=== PATIENT | female | born 1970 | race Two or more races ===

== ENCOUNTER 2020-07-09 20:47 | Inpatient (IN) | payer MEDICAID ==
[~2020-07-09] VITALS: Ht 160 cm; Wt 59.6 kg
[2020-07-10 00:08] LABS: HEMATOCRIT. 40.4 % (36.0-48.0); HEMOGLOBIN. 13.4 g/dL (12.0-16.0); MEAN CORPUSCULAR HEMOGLOBIN 28.6 pg (28.0-32.0); MEAN CORPUSCULAR VOLUME 86.1 fL (81.0-99.0); MEAN PLATELET VOLUME 7.7 fl (7.4-10.4); PLATELET 261 x1000/uL (130-400); RED BLOOD CELL COUNT 4.69 mill/uL (4.2-5.4); RED CELL DISTRIBUTION WIDTH 17.4 % (11.6-14.6)
[2020-07-10 00:20] LABS: CHLORIDE 100 mEq/L (98-107)
[2020-07-10] MEDS ORDERED: CEFEPIME 1,000 MG in DEXTROSE 5% WATER 50 ML IV ONE (01:00)
[2020-07-10] MEDS ORDERED: VANCOMYCIN 1 G PREMIX 200 ML IV SCH (01:00)
[2020-07-10 04:41] LABS: PLATELET ESTIMATE NORMAL
[2020-07-10 08:00] VITALS: BP 104/56
[2020-07-10] MEDS ORDERED: ONDANSETRON HCL 4MG/2ML INJ IV PRN (08:45)
[2020-07-10] MEDS ORDERED: DIPHENHYDRAMINE 50MG/ML VIAL IV PRN (08:45)
[2020-07-10] MEDS ORDERED: ALBUTEROL 6.7GM HFA INHALER ORI PRN (08:45)
[2020-07-10] MEDS ORDERED: CEFTRIAXONE 1 G PREMIX 50 ML IV SCH (08:45)
[2020-07-10] MEDS ORDERED: ACETAMINOPHEN 325MG TABLET PO PRN (08:45)
[2020-07-10] MEDS ORDERED: CLONIDINE 0.1MG TABLET PO PRN (08:45)
[2020-07-10] MEDS ORDERED: DEXTROSE 50% WATER 50ML SYRINGE IV PRN (10:00)
[2020-07-10] MEDS: ENOXAPARIN 40MG/0.4ML SYR SUBCUT SCH (10:01)
[2020-07-10] MEDS: AZITHROMYCIN 500 MG in DEXT 5% WATER 250 ML IV SCH (10:02)
[2020-07-10] MEDS: CEFTRIAXONE 1,000 MG in DEXTROSE 5% WATER 50 ML IV SCH (10:02)
[2020-07-10] MEDS ORDERED: FOLI-43 MT (11:32)
[2020-07-10] MEDS ORDERED: METH2.5T MT (11:32)
[2020-07-10] MEDS ORDERED: PRED10TA23 MT (11:32)
[2020-07-10 12:00] VITALS: BP 137/72
[2020-07-10] MEDS: BLOOD SUGAR DIAGNOSTIC STRIP TEST SCH ×3 (12:40→20:38)
[2020-07-10] MEDS: INSULIN LISPRO 100 UNITS/ML SUBCUT SCH ×3 (13:15→20:47)
[2020-07-10 14:55] VITALS: BP 119/87
[2020-07-10 16:00] VITALS: BP 115/81
[2020-07-10 16:44] LABS: C REACTIVE PROTEIN CARDIAC 0.57 mg/L (0.00-3.00)
[2020-07-10 20:00] VITALS: BP 109/68
[2020-07-11 00:45] VITALS: BP 115/77
[2020-07-11] MEDS: DICLOFENAC SODIUM 75MG DR (EC) TABLET PO SCH ×3 (02:10→20:54)
[2020-07-11] MEDS: PREDNISONE 5MG TABLET PO SCH ×3 (02:10→16:10)
[2020-07-11] MEDS: HYDROXYCHLOROQUINE SULFATE 200MG TABLET PO SCH ×3 (02:12→16:10)
[2020-07-11 04:00] VITALS: BP 101/71
[2020-07-11 05:54] LABS: HEMATOCRIT. 34.5 % (36.0-48.0); HEMOGLOBIN. 11.5 g/dL (12.0-16.0); MEAN CORPUSCULAR HEMOGLOBIN 28.4 pg (28.0-32.0); MEAN CORPUSCULAR VOLUME 85.1 fL (81.0-99.0); MEAN PLATELET VOLUME 7.8 fl (7.4-10.4); PLATELET 232 x1000/uL (130-400); RED BLOOD CELL COUNT 4.05 mill/uL (4.2-5.4); RED CELL DISTRIBUTION WIDTH 17.7 % (11.6-14.6)
[2020-07-11] MEDS ORDERED: TUBERCULIN,PURIF.PROT.DERIV. 5 TU/0.1 ML SYR ID ONE (07:00)
[2020-07-11] MEDS: BLOOD SUGAR DIAGNOSTIC STRIP TEST SCH ×3 (07:44→20:54)
[2020-07-11 07:51] VITALS: BP 108/67
[2020-07-11] MEDS: INSULIN LISPRO 100 UNITS/ML SUBCUT SCH ×3 (08:02→21:39)
[2020-07-11 08:03] LABS: CHLORIDE 103 mEq/L (98-107)
[2020-07-11] MEDS: CHOLECALCIFEROL (D3) 1000 UNIT TABLET PO SCH (08:04)
[2020-07-11] MEDS: ENOXAPARIN 40MG/0.4ML SYR SUBCUT SCH (08:04)
[2020-07-11] MEDS: FOLIC ACID 1MG TABLET PO SCH (08:05)
[2020-07-11 08:12] LABS: LDL CHOLESTEROL 150 mg/dL (5-100)
[2020-07-11 08:13] LABS: CREATINE KINASE 19 IU/L (26-192); HDL CHOLESTEROL 47 mg/dL (40-59)
[2020-07-11] MEDS: CEFTRIAXONE 1,000 MG in DEXTROSE 5% WATER 50 ML IV SCH (11:23)
[2020-07-11 12:00] VITALS: BP 100/63
[2020-07-11] MEDS: AZITHROMYCIN 500 MG in DEXT 5% WATER 250 ML IV SCH (12:03)
[2020-07-11 14:29] LABS: PLATELET ESTIMATE NORMAL
[2020-07-11 16:25] VITALS: BP 109/75
[2020-07-11 19:26] LABS: CLARITY URINE CLEAR (CLEAR); COLOR URINE YELLOW (YELLOW); KETONES URINE NEGATIVE (NEGATIVE); LEUKOCYTE ESTERASE URINE NEGATIVE (NEGATIVE); NITRITE URINE NEGATIVE (NEGATIVE); OCCULT BLOOD URINE NEGATIVE (NEGATIVE); PH URINE 6.5 (4.5-8.0); PROTEIN URINE NEGATIVE (NEGATIVE); SPECIFIC GRAVITY URINE 1.008 (1.005-1.030); UROBILINOGEN URINE 0.2 E.U./dL (0.2-1.0)
[2020-07-11 19:52] LABS: *BARBITURATES SCREEN URINE NEGATIVE (NEGATIVE); *BENZODIAZEPINES SCREEN URINE NEGATIVE (NEGATIVE); *COCAINE SCREEN URINE NEGATIVE (NEGATIVE)
[2020-07-11 19:54] LABS: *AMPHETAMINES SCREEN URINE NEGATIVE (NEGATIVE); CANNABINOID URINE SCREEN NEGATIVE (NEGATIVE); METHADONE URINE SCREEN NEGATIVE (NEGATIVE); OPIATES URINE SCREEN NEGATIVE (NEGATIVE); PHENCYCLIDINE URINE SCREEN NEGATIVE (NEGATIVE)
[2020-07-11 20:00] VITALS: BP 107/58
[2020-07-11 20:26] LABS: HCG SCREEN NEGATIVE
[2020-07-11] MEDS ORDERED: LOPERAMIDE HCL 2MG CAPSULE PO PRN (23:30)
[2020-07-12 00:31] VITALS: BP 120/89
[2020-07-12 04:00] VITALS: BP 118/75
[2020-07-12] MEDS: BLOOD SUGAR DIAGNOSTIC STRIP TEST SCH ×4 (06:23→20:55)
[2020-07-12 08:00] VITALS: BP 117/79
[2020-07-12] MEDS: DICLOFENAC SODIUM 75MG DR (EC) TABLET PO SCH ×2 (09:46→20:55)
[2020-07-12] MEDS: AZITHROMYCIN 500 MG TABLET PO SCH (09:46)
[2020-07-12] MEDS: PREDNISONE 5MG TABLET PO SCH ×2 (09:46→17:32)
[2020-07-12] MEDS: HYDROXYCHLOROQUINE SULFATE 200MG TABLET PO SCH ×2 (09:48→17:32)
[2020-07-12] MEDS: FOLIC ACID 1MG TABLET PO SCH (09:48)
[2020-07-12] MEDS: CHOLECALCIFEROL (D3) 1000 UNIT TABLET PO SCH (09:48)
[2020-07-12] MEDS: INSULIN LISPRO 100 UNITS/ML SUBCUT SCH ×4 (10:27→21:54)
[2020-07-12] MEDS: ENOXAPARIN 40MG/0.4ML SYR SUBCUT SCH (10:30)
[2020-07-12] MEDS: CEFTRIAXONE 1,000 MG in DEXTROSE 5% WATER 50 ML IV SCH (10:33)
[2020-07-12 12:00] VITALS: BP 104/62
[2020-07-12 16:00] VITALS: BP 110/66
[2020-07-12 20:34] VITALS: BP 121/89
[2020-07-12] MEDS: ACETYLCYSTEINE 100MG/ML 10% VIAL 4ML INH SCH (23:29)
[2020-07-12] MEDS: IPRATROPIUM/ALBUTEROL 0.5-3(2.5)MG/3ML NEB HHN PRN (23:29)
[2020-07-13] VITALS: BP 105/69
[2020-07-13 04:00] VITALS: BP 119/67
[2020-07-13] MEDS: BLOOD SUGAR DIAGNOSTIC STRIP TEST SCH ×4 (06:16→20:45)
[2020-07-13 08:00] VITALS: BP 138/82
[2020-07-13] MEDS: ENOXAPARIN 40MG/0.4ML SYR SUBCUT SCH (08:29)
[2020-07-13] MEDS: ACETYLCYSTEINE 100MG/ML 10% VIAL 4ML INH SCH ×3 (08:29→21:50)
[2020-07-13] MEDS: IPRATROPIUM/ALBUTEROL 0.5-3(2.5)MG/3ML NEB HHN PRN ×3 (08:30→21:50)
[2020-07-13] MEDS: INSULIN LISPRO 100 UNITS/ML SUBCUT SCH ×4 (08:32→20:59)
[2020-07-13] MEDS: DICLOFENAC SODIUM 75MG DR (EC) TABLET PO SCH ×2 (08:33→20:45)
[2020-07-13] MEDS: PREDNISONE 5MG TABLET PO SCH ×2 (08:33→16:59)
[2020-07-13] MEDS: AZITHROMYCIN 500 MG TABLET PO SCH (08:33)
[2020-07-13] MEDS: HYDROXYCHLOROQUINE SULFATE 200MG TABLET PO SCH ×2 (08:33→16:59)
[2020-07-13] MEDS: FOLIC ACID 1MG TABLET PO SCH (08:33)
[2020-07-13] MEDS: CHOLECALCIFEROL (D3) 1000 UNIT TABLET PO SCH (08:33)
[2020-07-13] MEDS: CEFTRIAXONE 1,000 MG in DEXTROSE 5% WATER 50 ML IV SCH (09:27)
[2020-07-13 12:00] VITALS: BP 135/81
[2020-07-13 16:00] VITALS: BP 105/67
[2020-07-13 20:45] VITALS: BP 130/78
[2020-07-14 00:23] VITALS: BP 106/57
[2020-07-14 04:00] VITALS: BP 125/71
[2020-07-14] MEDS: BLOOD SUGAR DIAGNOSTIC STRIP TEST SCH ×4 (06:39→21:53)
[2020-07-14 07:08] LABS: HEMATOCRIT. 34.1 % (36.0-48.0); HEMOGLOBIN. 11.3 g/dL (12.0-16.0); MEAN CORPUSCULAR HEMOGLOBIN 28.8 pg (28.0-32.0); MEAN CORPUSCULAR VOLUME 86.7 fL (81.0-99.0); MEAN PLATELET VOLUME 7.9 fl (7.4-10.4); PLATELET 241 x1000/uL (130-400); RED BLOOD CELL COUNT 3.93 mill/uL (4.2-5.4); RED CELL DISTRIBUTION WIDTH 18.3 % (11.6-14.6)
[2020-07-14 07:22] LABS: CHLORIDE 105 mEq/L (98-107)
[2020-07-14] MEDS: INSULIN LISPRO 100 UNITS/ML SUBCUT SCH ×4 (07:42→21:54)
[2020-07-14 08:04] VITALS: BP 120/66
[2020-07-14] MEDS: AZITHROMYCIN 500 MG TABLET PO SCH (08:32)
[2020-07-14] MEDS: DICLOFENAC SODIUM 75MG DR (EC) TABLET PO SCH ×2 (08:32→21:53)
[2020-07-14] MEDS: ENOXAPARIN 40MG/0.4ML SYR SUBCUT SCH (08:32)
[2020-07-14] MEDS: CHOLECALCIFEROL (D3) 1000 UNIT TABLET PO SCH (08:32)
[2020-07-14] MEDS: FOLIC ACID 1MG TABLET PO SCH (08:32)
[2020-07-14] MEDS: PREDNISONE 5MG TABLET PO SCH ×2 (08:32→16:52)
[2020-07-14] MEDS: HYDROXYCHLOROQUINE SULFATE 200MG TABLET PO SCH ×2 (08:33→16:52)
[2020-07-14 09:09] LABS: ALDOLASE 8.7 U/L (3.3-10.3)
[2020-07-14] MEDS: CEFTRIAXONE 1,000 MG in DEXTROSE 5% WATER 50 ML IV SCH (09:49)
[2020-07-14] MEDS: IPRATROPIUM/ALBUTEROL 0.5-3(2.5)MG/3ML NEB HHN PRN ×2 (10:11→21:44)
[2020-07-14] MEDS: ACETYLCYSTEINE 100MG/ML 10% VIAL 4ML INH SCH ×2 (10:11→21:43)
[2020-07-14 12:00] VITALS: BP 101/66
[2020-07-14 13:53] LABS: PLATELET ESTIMATE NORMAL
[2020-07-14 16:00] VITALS: BP 95/65
[2020-07-14] MEDS ORDERED: LOPERAMIDE HCL 2MG CAPSULE PO NR (18:00)
[2020-07-14 20:11] VITALS: BP 121/80
[2020-07-15 00:44] VITALS: BP 127/83
[2020-07-15 04:00] VITALS: BP 105/63
[2020-07-15] MEDS: BLOOD SUGAR DIAGNOSTIC STRIP TEST SCH ×4 (06:38→20:21)
[2020-07-15] MEDS: INSULIN LISPRO 100 UNITS/ML SUBCUT SCH ×4 (07:25→20:35)
[2020-07-15 08:00] VITALS: BP 117/70
[2020-07-15] MEDS: DICLOFENAC SODIUM 75MG DR (EC) TABLET PO SCH ×2 (08:47→20:36)
[2020-07-15] MEDS: HYDROXYCHLOROQUINE SULFATE 200MG TABLET PO SCH ×2 (08:48→17:45)
[2020-07-15] MEDS: ENOXAPARIN 40MG/0.4ML SYR SUBCUT SCH (08:48)
[2020-07-15] MEDS: METHOTREXATE SODIUM 2 . 5MG TABLET PO SCH ×3 (08:48→17:45)
[2020-07-15] MEDS: FOLIC ACID 1MG TABLET PO SCH (08:48)
[2020-07-15] MEDS: PREDNISONE 5MG TABLET PO SCH ×2 (08:48→17:45)
[2020-07-15] MEDS: CHOLECALCIFEROL (D3) 1000 UNIT TABLET PO SCH (08:48)
[2020-07-15] MEDS: IPRATROPIUM/ALBUTEROL 0.5-3(2.5)MG/3ML NEB HHN PRN ×2 (09:41→14:55)
[2020-07-15] MEDS: ACETYLCYSTEINE 100MG/ML 10% VIAL 4ML INH SCH ×2 (09:41→14:56)
[2020-07-15 12:00] VITALS: BP 98/68
[2020-07-15 16:00] VITALS: BP 110/73
[2020-07-15 20:00] VITALS: BP 104/64
[2020-07-16 00:14] VITALS: BP 114/73
[2020-07-16] MEDS: ACETYLCYSTEINE 100MG/ML 10% VIAL 4ML INH SCH ×2 (00:21→09:40)
[2020-07-16] MEDS: IPRATROPIUM/ALBUTEROL 0.5-3(2.5)MG/3ML NEB HHN PRN ×2 (00:22→09:40)
[2020-07-16 04:00] VITALS: BP 98/59
[2020-07-16] MEDS: BLOOD SUGAR DIAGNOSTIC STRIP TEST SCH ×2 (06:20→12:20)
[2020-07-16] MEDS: INSULIN LISPRO 100 UNITS/ML SUBCUT SCH ×2 (07:02→12:50)
[2020-07-16] MEDS: FOLIC ACID 1MG TABLET PO SCH (08:07)
[2020-07-16] MEDS: PREDNISONE 5MG TABLET PO SCH (08:07)
[2020-07-16] MEDS: CHOLECALCIFEROL (D3) 1000 UNIT TABLET PO SCH (08:07)
[2020-07-16] MEDS: ENOXAPARIN 40MG/0.4ML SYR SUBCUT SCH (08:07)
[2020-07-16] MEDS: HYDROXYCHLOROQUINE SULFATE 200MG TABLET PO SCH (08:07)
[2020-07-16] MEDS: DICLOFENAC SODIUM 75MG DR (EC) TABLET PO SCH (08:07)
[2020-07-16 08:12] VITALS: BP 105/69
[2020-07-16 12:43] VITALS: BP 101/63
[2020-07-16 15:17] VITALS: BP 101/63
== END 2020-07-16 16:13 | disposition home or self-care (01) | DRG 720 ==
LOC: ER 20:47 → 7WST 07-10 02:04 → ENRESERV 07-10 05:03 → 6WST 07-10 15:01
PROVIDERS: ADMIT Internal Medicine; ATTEND Internal Medicine
DX: A41.9 Sepsis, unspecified organism (principal); J96.00 Acute respiratory failure, unspecified whether with hypoxia or hypercapnia; E87.1 Hypo-osmolality and hyponatremia; L40.50 Arthropathic psoriasis, unspecified; M65.9 Synovitis and tenosynovitis, unspecified; T38.0X5A Adverse effect of glucocorticoids and synthetic analogues, initial encounter; E55.9 Vitamin D deficiency, unspecified; D75.A Glucose-6-phosphate dehydrogenase (G6PD) deficiency without anemia; M19.011 Primary osteoarthritis, right shoulder; R73.03 Prediabetes; R74.0 Nonspecific elevation of levels of transaminase and lactic acid dehydrogenase [LDH]; R73.9 Hyperglycemia, unspecified; E78.5 Hyperlipidemia, unspecified; J18.9 Pneumonia, unspecified organism; D89.89 Other specified disorders involving the immune mechanism, not elsewhere classified; M75.90 Shoulder lesion, unspecified, unspecified shoulder; M77.9 Enthesopathy, unspecified; Z20.828 Contact with and (suspected) exposure to other viral communicable diseases; Z80.1 Family history of malignant neoplasm of trachea, bronchus and lung; Z82.49 Family history of ischemic heart disease and other diseases of the circulatory system; Y92.89 Other specified places as the place of occurrence of the external cause; Z90.710 Acquired absence of both cervix and uterus; Z98.891 History of uterine scar from previous surgery; I77.6 Arteritis, unspecified
CPT/HCPCS: 36415; 71045; 71250; 80048; 80053; 80061; 80305; 81003; 82085; 82533; 82550; 82728; 82962; 83036; 83615; 83930; 84443; 84703; 85025; 85379; 86141; 86635; 87015; 87045; 87116; 87427; 87449; 87493; 90585; 93005; 94640; 99285; J0456; J0692; J0696; J1650; J1815; J3370; J7060; J7512; J7608; J8610; U0003-CS

== ENCOUNTER 2025-02-05 23:00 | Inpatient (IN) | payer MEDICAID ==
[~2025-02-05] VITALS: Ht 165.1 cm; Wt 72.6 kg
[~2025-02-05 23:00] MED LIST: FOLI-43 MT; METH2.5T MT; PRED10TA23 MT
[2025-02-06 00:02] LABS: HEMATOCRIT. 39.3 % (36.0-48.0); HEMOGLOBIN. 13.1 g/dL (12.0-16.0); MEAN CORPUSCULAR HEMOGLOBIN 29.9 pg (28.0-32.0); MEAN CORPUSCULAR HGB CONC 33.4 g/dL (31.0-37.0); MEAN CORPUSCULAR VOLUME 89.5 fL (81.0-99.0); MEAN PLATELET VOLUME 8.5 fl (7.4-10.4); PLATELET 222 x1000/uL (130-400); RED BLOOD CELL COUNT 4.39 mill/uL (4.2-5.4); RED CELL DISTRIBUTION WIDTH 14.1 % (11.6-14.6); WHITE BLOOD COUNT 14.2 x1000/uL (4.5-11.0)
[2025-02-06 00:10] LABS: CARBON DIOXIDE 30 mEq/L (21-32); CHLORIDE 97 mEq/L (98-107); POTASSIUM 3.9 mEq/L (3.5-5.1); SODIUM 135 mEq/L (136-145)
[2025-02-06 00:12] LABS: DIFFERENTIAL COMMENT 1
[2025-02-06 00:15] LABS: CREATININE 0.8 mg/dL (0.6-1.0)
[2025-02-06 00:16] LABS: GLUCOSE 151 mg/dL (70-105); UREA NITROGEN BLOOD 9 mg/dL (9-23)
[2025-02-06 00:17] LABS: ALANINE AMINOTRANSFERASE 26 IU/L (10-49); ALBUMIN 4.4 g/dL (3.2-4.8); ASPARTATE AMINOTRANSFERASE 25 IU/L (<34)
[2025-02-06 00:18] LABS: BILIRUBIN DIRECT 0.2 mg/dL (<=3.0); BILIRUBIN TOTAL 0.7 mg/dL (0.1-1.0); PROTEIN TOTAL 8.1 g/dL (6.0-8.3)
[2025-02-06] MEDS: KETOROLAC 15MG/ML VIAL IM ONE (00:45)
[2025-02-06] MEDS: ONDANSETRON HCL 4MG TABLET PO ONE (00:45)
[2025-02-06 01:14] LABS: CLARITY URINE CLOUDY (CLEAR); COLOR URINE YELLOW (YELLOW); GLUCOSE URINE NEGATIVE (NEGATIVE); KETONES URINE NEGATIVE (NEGATIVE); LEUKOCYTE ESTERASE URINE 3+ (NEGATIVE); NITRITE URINE POSITIVE (NEGATIVE); OCCULT BLOOD URINE 2+ (NEGATIVE); PH URINE 6.5 (4.5-8.0); PROTEIN URINE 1+ (NEGATIVE); SPECIFIC GRAVITY URINE 1.007 (1.005-1.030); UROBILINOGEN URINE 0.2 E.U./dL (0.2-1.0)
[2025-02-06 01:41] LABS: SQUAMOUS EPITHELIAL CELL URINE 1+ /lpf (RARE/1+)
[2025-02-06 01:42] LABS: WBC URINE TNTC /hpf (0-2)
[2025-02-06 01:43] LABS: BACTERIA URINE 3+; RBC URINE 0-2 /hpf (0-2)
[2025-02-06] MEDS: CEFTRIAXONE SODIUM 1G VIAL IM ONE (02:05)
[2025-02-06] MEDS ORDERED: CEFP200T13 MT (02:46)
[2025-02-06 03:35] LABS: PLATELET ESTIMATE NORMAL
[2025-02-06] MEDS: SODIUM CHLORIDE 0.9% (SEPSIS BOLUS) IV ONE (04:00)
[2025-02-06] MEDS ORDERED: VANCOMYCIN 1000MG/250ML 250 ML IV SCH (05:45)
[2025-02-06] MEDS: VANCOMYCIN 1G PREMIX 200 ML IV NR (05:51)
[2025-02-06] MEDS: ACETAMINOPHEN 325MG TABLET PO ONE (06:18)
[2025-02-06 06:31] LABS: BG BASE EXCESS -4.9 mmol/L (-2.0-3.0); BG CARBOXYHEMOGLOBIN 0.8 % (0.5-1.5); BG FRACTION INSPIRED OXYGEN 36; BG HCO3 ACT 17.7 mmol/L (21.0-28.0); BG METHEMOGLOBIN 0.2 % (0.5-1.5); BG PCO2 26.6 mmHg (32.0-45.0); BG PH 7.442 (7.350-7.450); BG PO2 136.7 mmHg (83.0-108.0); BG SAMPLE SITE RIGHT RADIAL; BG TOTAL HEMOGLOBIN 12.4 g/dL (12.0-16.0); BG VENT MODE NASAL CANNULA
[2025-02-06] MEDS ORDERED: MEROPENEM 1,000 MG in SODIUM CHLORIDE 0.9% 100 ML IV ONE (07:00)
[2025-02-06 08:15] VITALS: BP 94/52; PULSE 110; RESP 18; TEMP 37.5; O2SAT 95
[2025-02-06 08:40] VITALS: BP 94/52; PULSE 110; RESP 18; TEMP 37.5
[2025-02-06] MEDS ORDERED: NIFE-32 MT (09:01)
[2025-02-06] MEDS ORDERED: HYDR200T35 MT (09:01)
[2025-02-06] MEDS ORDERED: METF-414 MT (09:03)
[2025-02-06] MEDS: MEROPENEM 1G/100ML IV NR (09:05)
[2025-02-06] MEDS ORDERED: ONDANSETRON HCL 4MG/2ML INJ IV PRN (10:30)
[2025-02-06] MEDS ORDERED: ACETAMINOPHEN 325MG TABLET PO PRN (10:30)
[2025-02-06] MEDS ORDERED: DEXTROSE 50% WATER 50ML SYRINGE IV PRN (10:30)
[2025-02-06] MEDS ORDERED: CLONIDINE 0.1MG TABLET PO PRN (10:30)
[2025-02-06] MEDS ORDERED: ZOLPIDEM TARTRATE 5MG TABLET PO PRN (10:30)
[2025-02-06] MEDS: BLOOD SUGAR DIAGNOSTIC STRIP TEST SCH (11:54)
[2025-02-06] MEDS: INSULIN LISPRO 100 UNITS/ML SUBCUT SCH (11:54)
[2025-02-06 12:00] VITALS: BP 100/48; PULSE 106; RESP 18; TEMP 37.7; O2SAT 98
[2025-02-06] MEDS: ENOXAPARIN 40MG/0.4ML SYR SUBCUT SCH (12:07)
[2025-02-06] MEDS: DIPHENHYDRAMINE 50MG/ML VIAL IV PRN (12:08)
[2025-02-06] MEDS: SODIUM CHLORIDE 0.9% 1,000 ML IV SCH (12:09)
[2025-02-06 16:00] VITALS: BP 92/52; PULSE 91; RESP 18; TEMP 36.5; O2SAT 98
[2025-02-06] MEDS: CEFTRIAXONE 1GM/50ML 50 ML IV SCH (16:13)
[2025-02-06] MEDS: ACETAMINOPHEN 325MG TABLET PO PRN (16:25)
[2025-02-06 17:27] VITALS: BP 92/52; PULSE 91; TEMP 97.7; O2SAT 98
[2025-02-06 20:00] VITALS: BP 87/48; PULSE 95; RESP 18; TEMP 36.3; O2SAT 98
[2025-02-06] MEDS: MEROPENEM 1G/100ML 100 ML IV SCH (21:12)
[2025-02-07] VITALS: BP 107/65; PULSE 89; RESP 18; TEMP 36.7; O2SAT 98
[2025-02-07] MEDS ORDERED: CEFTRIAXONE 1GM/50ML 50 ML IV SCH (02:00)
[2025-02-07 04:00] VITALS: BP 122/64; PULSE 86; RESP 18; TEMP 36.6; O2SAT 96
[2025-02-07] MEDS: LIDOCAINE HCL 1% 10 MG/ML 10ML VIAL ONE (07:51)
[2025-02-07 08:00] VITALS: BP 110/61; PULSE 89; RESP 18; TEMP 36.5; O2SAT 97
[2025-02-07 08:41] LABS: BASOPHILS % 0.6 % (0.0-2.0); EOSINOPHILS % 1.3 % (0.0-5.0); HEMOGLOBIN. 11.1 g/dL (12.0-16.0); LYMPHOCYTES % 7.6 % (20.0-50.0); MEAN CORPUSCULAR HEMOGLOBIN 29.8 pg (28.0-32.0); MEAN CORPUSCULAR HGB CONC 32.8 g/dL (31.0-37.0); MEAN CORPUSCULAR VOLUME 90.9 fL (81.0-99.0); NEUTROPHILS % 85.5 % (40.0-76.0); RED BLOOD CELL COUNT 3.73 mill/uL (4.2-5.4); RED CELL DISTRIBUTION WIDTH 14.7 % (11.6-14.6)
[2025-02-07 08:46] LABS: CHLORIDE 106 mEq/L (98-107); POTASSIUM 3.7 mEq/L (3.5-5.1); SODIUM 138 mEq/L (136-145)
[2025-02-07 08:47] LABS: CALCIUM 9.1 mg/dL (8.7-10.4); CARBON DIOXIDE 21 mEq/L (21-32)
[2025-02-07 08:52] LABS: CREATININE 0.6 mg/dL (0.6-1.0); GLUCOSE 83 mg/dL (70-105)
[2025-02-07 08:53] LABS: UREA NITROGEN BLOOD < 5 mg/dL (9-23)
[2025-02-07 08:55] LABS: PHOSPHORUS 2.3 mg/dL (2.5-4.9)
[2025-02-07 08:57] LABS: DIFFERENTIAL COMMENT 1
[2025-02-07 10:10] LABS: PLATELET 236 x1000/uL (130-400)
[2025-02-07] MEDS: MEROPENEM 1G/100ML 100 ML IV SCH (10:40)
[2025-02-07 12:00] VITALS: BP 116/62; PULSE 84; RESP 18; TEMP 36.6; O2SAT 97
[2025-02-07 16:00] VITALS: BP 116/62; PULSE 84; RESP 18; TEMP 36.6; O2SAT 97
[2025-02-07] MEDS: SODIUM CHLORIDE 0.9% 1,000 ML IV SCH (16:38)
== END 2025-02-07 19:23 | disposition short-term general hospital (02) | DRG 720 ==
LOC: ER 23:00 → 8WST 02-06 05:39 → UNDODISIN 02-06 18:16
PROVIDERS: ADMIT Internal Medicine; ATTEND Internal Medicine
PROC: 02HV33Z Insertion of Infusion Device into Superior Vena Cava, Percutaneous Approach (ICD-10-PCS; principal; 2025-02-07)
PROC: B548ZZA Ultrasonography of Superior Vena Cava, Guidance (ICD-10-PCS; 2025-02-07)
DX: A41.9 Sepsis, unspecified organism (principal); E11.9 Type 2 diabetes mellitus without complications; N10 Acute pyelonephritis; I10 Essential (primary) hypertension; Z90.710 Acquired absence of both cervix and uterus; B96.89 Other specified bacterial agents as the cause of diseases classified elsewhere; Z98.891 History of uterine scar from previous surgery
CPT/HCPCS: 36415; 36573; 36600; 71045; 80048; 80076; 81003; 82375; 82805; 82962; 83036; 83605; 83735; 84100; 84145; 85025; 85379; 87077; 87186; 99291; A4606; C1725; J0696; J1200; J1650; J1885; J2003; J2185; J3370; J7030; Q0162